=== PATIENT | male | born 1955 | race Caucasian/White ===

== ENCOUNTER 2021-05-19 09:59 | Emergency (ER) | payer OTHER ==
[~2021-05-19] VITALS: Ht 177.8 cm; Wt 70.3 kg
[2021-05-19 10:28] LABS: ABSOLUTE NEUTROPHILS 5.1 thou/uL (1.4-8.2); BASOPHILS 0.6 % (0.0-2.0); EOSINOPHILS 1.5 % (0.0-3.0); HEMATOCRIT 41.1 % (42.0-52.0); HEMOGLOBIN 13.3 gm/dL (14.0-18.0); LYMPHOCYTES 25.4 % (24.0-44.0); MCHC 32.3 g/dL (28.0-37.0); MCV 95.9 fL (80.0-100.0); MONOCYTES 8.2 % (1.0-8.0); PLATELET COUNT 378 thou/uL (150-400); POLYS 64.3 % (36.0-66.0); RBC 4.29 mil/uL (4.50-6.00)
[2021-05-19 10:33] LABS: CALCIUM 8.8 mg/dL (8.5-10.1); CREATININE 0.8 mg/dL (0.7-1.3); POTASSIUM 4.1 mmol/L (3.5-5.1)
[2021-05-19 11:32] VITALS: BP 140/76
--- NOTE | 2021-05-19 12:07 | EKG ---
[place] [address] 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 : 1955 Requested By: Khoa Isaac Order Number: [id number] MD: Sriram Luo Measurements Intervals [place] Rate: 62 P: 7 MS: 149 QRS: 14 QRSD: 91 T: 30 QT: 407 QTc: 414 Interpretive Statements Sinus rhythm RSR' in V1 or V2, right VCD or RVH Baseline wander in lead(s) I,II,aVR,V4,V6 Compared to ECG 12/28/1998 13:25:00 Right ventricular hypertrophy now present RSR' in V1 or V2 now present Sinus bradycardia no longer present Electronically Signed On 05-19-2021 12:07:23 CDT by Sriram Luo [email or web address] <ELECTRONICALLY SIGNED> By: Sriram Luo MD, FACC 05/19/21 1207 1005 1005 Sriram Luo MD, [facility] /EPI
== END 2021-05-19 11:32 | disposition home or self-care (01) ==
LOC: ER 09:59
PROVIDERS: Emergency Medicine
DX: M94.0 Chondrocostal junction syndrome [Tietze] (principal); R07.89 Other chest pain; K21.9 Gastro-esophageal reflux disease without esophagitis; Z88.0 Allergy status to penicillin

== ENCOUNTER → 2021-06-05 | Outpatient (CLI) | payer OTHER | LOC: RAD 15:24 | PROVIDERS: ATTEND Internal Medicine Cardiovascular Disease | DX: Z13.6 Encounter for screening for cardiovascular disorders (principal) ==